=== PATIENT | male | born 1995 | race Caucasian/White ===

== ENCOUNTER 2018-04-28 18:39 | Emergency (ER) | payer BC ==
--- NOTE | 2018-04-28 19:04 | ER Report ---
History and Physical Time Seen By MD: 19:03 Hx. of Stated Complaint: Stepped on glass in [place] yesterday. HPI/ROS CHIEF COMPLAINT: Possible glass in bottom of left foot HISTORY OF PRESENT ILLNESS: 22-year-old male patient presents to emergency room with complaint of puncture wound to the bottom of the left foot. Patient states that he was in [place] yesterday and the water was cold in his feet were numb. Patient states that he stepped on broken glass while he was in there. He did not know sent to last night. Last night he did notice he was having pain and explored it with forceps was able to remove a few pieces of glass. Patient states that he's been having persistent pain today. He denies having any fevers or chills. He did come in for evaluation of possible retained foreign body in his foot. ROS: General: denies fever, nights sweats, or chills Skin: denies rash, redness of the affected foot Respiratory: denies shortness of breath, denies difficulty breathing CV: denies chest pain GI: denies nausea or vomiting Allergies: Coded Allergies: No Known Drug Allergies (Unverified , 04/28/18) Home Meds Active Scripts Ketorolac Tromethamine (KETOROLAC TROMETHAMINE) 10 Mg Tab, 10 MG PO Q6H for 3 Days, #12 TAB Prov:LINDA THAKUR [facility] 04/28/18 Cephalexin 500 Mg Tab (KEFLEX 500 MG TAB) 500 Mg Tablet, 500 MG PO Q6H for 7 Days, #28 TAB Prov:LINDA THAKUR [facility] 04/28/18 Past Medical/Surgical History Patient has no pertinent past medical or surgical history. Reviewed Nurses Notes: Yes Constitutional Vital Sign - Last 24 Hours 04/28/18 04/28/18 04/28/18 04/28/18 18:44 18:46 18:54 19:09 Temp 98.4 Pulse 74 82 74 Resp 16 B/P (MAP) 131/87 (102) 131/87 Pulse Ox 94 95 94 O2 Delivery Room Air 04/28/18 04/28/18 19:24 20:23 Pulse 74 71 B/P (MAP) 124/91 (102) Pulse Ox 96 95 O2 Delivery Room Air Physical Exam General appearance: Alert no distress. Respiratory: Chest is non tender, lungs are clear to auscultation. Cardiac: Regular rate and rhythm. Skin: Patient has a 0.5 cm laceration to the bottom of the left foot, it is erythematous, it is tender to touch. Patient has full range of motion. DIFFERENTIAL DIAGNOSIS: After history and physical exam differential diagnosis was considered for cellulitis, retained foreign body, laceration. Medical Decision Making EKG/Imaging Imaging FOOT 3 VIEW LEFT Indication: Stepped on glass. Comparison: None Available Findings: 3 views of the left foot were obtained. No fracture or dislocation. No bony lesions, degenerative changes or periosteal abnormality. Soft tissues on the lateral view show linear hyperdensity along the skin surface of the plantar aspect of the midfoot. Soft tissues are otherwise unremarkable. IMPRESSION: 1.No acute osseous abnormality of the left foot 2. There is a linear density along the skin surface of the plantar aspect of the left midfoot. Unsure if this is artifact from the positioning or radiopaque foreign body. Report Dictated By: Rohit Rojas at 04/28/2018 7:59 PM Report E-Signed By: Rohit Rojas at 04/28/2018 8:03 PM ED Course/Re-evaluation ED Course 22-year-old male patient presented to emergency room with complaint of puncture wound to the bottom of the left foot. The patient reports exploring his foot and finding shards of glass but was not sure he removed all the glass. History and physical obtained. Imaging of the foot obtained. Exploration of the wound resulted in no additional glass removed. Differential diagnoses considered and discussed with the patient. The patient was sent home for home-care. The patient has been placed on prophylactic Keflex, he has been prescribed Toradol for pain, and encouraged to rest, elevate, and ice the foot. Procedure The would was cleaned. 2 mls of lidocaine was administered to the soft tissue of the plantar, left foot. Wound explored with forceps. No additional foreign body found in the wound. The site was cleaned and bandaged. Decision to Disposition Date: Apr 28, 2018 Decision to Disposition Time: 19:45 Depart Departure Latest Vital Signs Vital Signs Date Time Temp Pulse Resp B/P (MAP) Pulse Ox O2 Delivery O2 Flow Rate FiO2 04/28/18 20:23 71 124/91 (102) 95 Room Air 04/28/18 18:46 98.4 16 Impression: Primary Impression: Laceration of foot, left Condition: Improved Disposition: HOME OR SELF-CARE New Scripts Ketorolac Tromethamine (KETOROLAC TROMETHAMINE) 10 Mg Tab 10 MG PO Q6H for 3 Days, #12 TAB Prov: LINDA THAKUR 04/28/18 Cephalexin 500 Mg Tab (KEFLEX 500 MG TAB) 500 Mg Tablet 500 MG PO Q6H for 7 Days, #28 TAB Prov: LINDA THAKUR 04/28/18 Patient Instructions: Laceration (ED) Additional Instructions: Take cephalexin 500 mg four times a day for 7 days. Take Toradol for pain as needed every 6 hours. Keep the wound clean and dry. Elevate the foot when sitting. Follow up with your primary care provider within the week. Return to the Emergency Department if your condition worsens. Seek medical attention if you experience the foot becoming more red, swollen, or more painful. Problem Qualifiers Primary Impression: Laceration of foot, left Encounter type: initial encounter Qualified Codes: S91.312A - Laceration without foreign body, left foot, initial encounter LINDA THAKUR Apr 28, 2018 19:04
[2018-04-28] MEDS ORDERED: KETOROLAC TROM 10 MG TAB TH PO ONE (19:15)
[2018-04-28] MEDS ORDERED: DIPHTH/TETANUS/ACEL. PERTUSSIS IM ONLY ONE (19:50)
--- NOTE | 2018-04-28 20:06 | RADIOLOGY IMAGING REPORT ---
FACILITY: [facility] PATIENT NAME: Damon Angeles : 1995 MR: [id number] V: [id number] EXAM DATE: ORDERING PHYSICIAN: LINDA THAKUR TECHNOLOGIST: Location: [facility] [place] Patient: Damon Angeles : 1995 Visit/Account:[id number] Date of Sevice: 04/28/2018 FOOT 3 VIEW LEFT Indication: Stepped on glass. Comparison: None Available Findings: 3 views of the left foot were obtained. No fracture or dislocation. No bony lesions, degenerative changes or periosteal abnormality. Soft tis sues on the lateral view show linear hyperdensity along the skin surface of the plantar aspect of the midfoot. Soft tissues are otherwise unremarkable. IMPRESSION: 1.No acute osseous abnormality of the left foot 2. There is a linear density along the skin surface of the plantar aspect of the left midfoot. Unsure if this is artifact from the positioning or radiopaque foreign body. Report Dictated By: Rohit Rojas at 04/28/2018 7:59 PM Report E-Signed By: Rohit Rojas at 04/28/2018 8:03 PM WSN:[id number]
[2018-04-28] MEDS ORDERED: KET10 PO (20:19)
[2018-04-28] MEDS ORDERED: CEPH500T7 PO (20:19)
[2018-04-28] MEDS ORDERED: CEPHALEXIN MONO 500 MG CAP PO ONE (20:20)
[2018-04-28] MEDS ORDERED: CEPHALEXIN 500 MG CAP TH 2 CAP/BOTTLE PO ONE (20:20)
[2018-04-28 20:23] VITALS: BP 124/91
== END 2018-04-28 20:32 | disposition home or self-care (01) ==
LOC: ER 18:48
DX: S91.312A Laceration without foreign body, left foot, initial encounter (principal)
CPT/HCPCS: 90471; 90715; 99283